=== PATIENT | female | born 1990 | race Hispanic/Latino ===

== ENCOUNTER 2019-02-22 19:34 | Emergency (ER) | payer OTHER ==
[~2019-02-22] VITALS: Ht 154.9 cm; Wt 104.3 kg
--- OUTSIDE RECORDS SUMMARY | 2019-02-22 19:37 | XMS REPORT | Clinical Summary ---
Author Author [facility] Address Unknown Phone Unavailable Care Team Providers Care Project Management Intern Name Role Phone Tona Cummins PCP Unavailable Allergies No Known Allergies Medications End Date Status Medication Sig Dispensed Refills Start Date Active omeprazole (PRILOSEC) 20 Take 20 mg by 0 MG capsule mouth daily. Active TRAMADOL HCL (TRAMADOL Take by 0 ORAL) mouth. Active IBUPROFEN ORAL Take by 0 mouth. Active Problems Problem Noted Date Hydronephrosis, unspecified hydronephrosis type 01/11/2017 Flank pain 01/11/2017 Acute cystitis without hematuria 08/28/2016 Left ureter dilated 08/28/2016 Right ureter dilated 08/28/2016 Left nephrolithiasis 08/28/2016 Bilateral hydronephrosis 08/28/2016 Gallstones 08/27/2016 Choledocholithiasis 08/27/2016 Family History Medical History Relation Name Comments Diabetes Maternal Grandmother Heart disease Maternal Grandmother Diabetes Maternal Uncle Asthma Mother Hyperlipidemia Mother Hypertension Paternal Grandmother Relation Name Status Comments Maternal Grandmother Maternal Uncle Mother Paternal Grandmother Social History Date Tobacco Use Types Packs/Day Years Used Quit: 06/08/2010 Former Smoker Cigarettes 0.5 5 Smokeless Tobacco: Chew Current User Alcohol Use Drinks/Week oz/Week Comments No Sex Assigned at Date Recorded Not on file Industry Job Start Date Occupation Not on file Not on file Not on file Travel End Travel History Travel Start No recent travel history available. Last Filed Vital Signs Not on file Plan of Treatment Not on file Results Not on fileafter 02/21/2018 Insurance Payer Benefit Subscriber ID Type Phone Address Plan / Group CIG[employer] - MGD CARE CIGNA xxxxxxxxxxx HMO/POS [facility] Advance Directives For more information, please contact: [facility] [address] [place] [address] Date Inactivated Comments Code Status Date Activated 01/13/2017 11:23 AM Full Code 01/11/2017 7:50 PM This code status was determined by: Patient 08/28/2016 8:34 PM Full Code 08/27/2016 5:51 AM This code status was determined by: Patient
--- OUTSIDE RECORDS SUMMARY | 2019-02-22 19:37 | XMS REPORT ---
Author Author [facility] Address Unknown Phone Unavailable Care Team Providers Care Global Marketing Specialist Name Role Phone HAWK GINA GONZALEZ Unavailable Unavailable RICHARD SERRANO Unavailable Unavailable Payers Payer Name Policy Type Policy Number Effective Date Expiration Date Problems This patient has no known problems. Allergies, Adverse Reactions, Alerts Allergy Name Allergy Type Status Severity Reaction(s) Onset Date Inactive Date Treating Clinician Comments No Known Allergies DA Active U 2018-01-10 00:00:00 Medications This patient has no known medications. Results Test Description Test Time Test Comments Text Results Atomic Results Result Comments BLOOD CULTURE 2017-01-18 00:00:00 CULTURE (BEAKER) (test bayq=2772) No growth in 5 days URINE [id number] 09:49:00* Test Item Value Reference Range Comments CULTURE (BEAKER) (test hayz=6235) >100,000 col/mL skin jamie CBC W/PLT COUNT & AUTO [id number] 08:20:00* Test Item Value Reference Range Comments WHITE BLOOD CELL COUNT (BEAKER) (test avxs=419) 4.7 K/ L 3.5-10.5 RED BLOOD CELL COUNT (BEAKER) (test wfww=162) 4.10 M/ L 3.93-5.22 HEMOGLOBIN (BEAKER) (test rrid=109) 10.6 GM/DL 11.2-15.7 HEMATOCRIT (BEAKER) (test xkec=839) 32.8 % 34.1-44.9 MEAN CORPUSCULAR VOLUME (BEAKER) (test ywdr=954) 80.0 fL 79.4-94.8 MEAN CORPUSCULAR HEMOGLOBIN (BEAKER) (test ozqo=176) 25.9 pg 25.6-32.2 MEAN CORPUSCULAR HEMOGLOBIN CONC (BEAKER) (test srox=673) 32.3 GM/DL 32.2-35.5 RED CELL DISTRIBUTION WIDTH (BEAKER) (test glup=856) 15.1 % 11.7-14.4 PLATELET COUNT (BEAKER) (test rrvv=262) 162 K/CU MM 150-450 MEAN PLATELET VOLUME (BEAKER) (test krzm=906) 10.5 fL 9.4-12.3 NUCLEATED RED BLOOD CELLS (BEAKER) (test hvmd=926) 0 /100 WBC 0-0 NEUTROPHILS RELATIVE PERCENT (BEAKER) (test bbmj=642) 44 % LYMPHOCYTES RELATIVE PERCENT (BEAKER) (test jyuo=244) 46 % MONOCYTES RELATIVE PERCENT (BEAKER) (test acwx=593) 8 % EOSINOPHILS RELATIVE PERCENT (BEAKER) (test lxff=636) 2 % BASOPHILS RELATIVE PERCENT (BEAKER) (test rwlu=299) 0 % NEUTROPHILS ABSOLUTE COUNT (BEAKER) (test nabt=842) 2.09 K/ L 1.56-6.13 LYMPHOCYTES ABSOLUTE COUNT (BEAKER) (test tvvi=730) 2.16 K/ L 1.18-3.74 MONOCYTES ABSOLUTE COUNT (BEAKER) (test srpf=803) 0.36 K/ L 0.24-0.36 EOSINOPHILS ABSOLUTE COUNT (BEAKER) (test timy=748) 0.09 K/ L 0.04-0.36 BASOPHILS ABSOLUTE COUNT (BEAKER) (test sdii=386) 0.01 K/ L 0.01-0.08 IMMATURE GRANULOCYTES-RELATIVE PERCENT (BEAKER) (test xkzb=9232) 0 % 0-1 (MANUAL DIFFERENTIAL)2017-01-13 08:20:00* Test Item Value Reference Range Comments TOTAL COUNTED (BEAKER) (test psxz=0407) WBC MORPHOLOGY (BEAKER) (test tvfu=629) Normal PLT MORPHOLOGY (BEAKER) (test gslm=372) Normal RBC MORPHOLOGY (BEAKER) (test yhrh=617) Normal BASIC METABOLIC [id number] 06:59:00* Test Item Value Reference Range Comments SODIUM (BEAKER) (test anmc=013) 138 meq/L 136-145 POTASSIUM (BEAKER) (test vfgr=662) 3.7 meq/L 3.5-5.1 CHLORIDE (BEAKER) (test qtcp=885) 111 meq/L 98-107 CO2 (BEAKER) (test pdgf=869) 20 meq/L 22-29 BLOOD UREA NITROGEN (BEAKER) (test hgxv=626) 5 mg/dL 7-21 CREATININE (BEAKER) (test apxt=274) 0.72 mg/dL 0.57-1.25 GLUCOSE RANDOM (BEAKER) (test vezj=699) 105 mg/dL 70-105 CALCIUM (BEAKER) (test ytag=799) 8.2 mg/dL 8.4-10.2 EGFR (BEAKER) (test hlqw=8453) 98 mL/min/1.73 sq m ESTIMATED GFR IS NOT ACCURATE CREATININE CLEARANCE IN PREDICTING GLOMERULAR FILTRATION RATE. ESTIMATED GFR IS NOT APPLICABLE FOR DIALYSIS PATIENTS. CBC W/PLT COUNT & AUTO [id number] 06:28:00* Test Item Value Reference Range Comments WHITE BLOOD CELL COUNT (BEAKER) (test ywon=901) 7.3 K/ L 3.5-10.5 RED BLOOD CELL COUNT (BEAKER) (test sfps=467) 4.49 M/ L 3.93-5.22 HEMOGLOBIN (BEAKER) (test cqqp=561) 11.5 GM/DL 11.2-15.7 HEMATOCRIT (BEAKER) (test kfvj=231) 37.0 % 34.1-44.9 MEAN CORPUSCULAR VOLUME (BEAKER) (test xvgy=933) 82.4 fL 79.4-94.8 MEAN CORPUSCULAR HEMOGLOBIN (BEAKER) (test stcy=122) 25.6 pg 25.6-32.2 MEAN CORPUSCULAR HEMOGLOBIN CONC (BEAKER) (test rshy=756) 31.1 GM/DL 32.2-35.5 RED CELL DISTRIBUTION WIDTH (BEAKER) (test bidr=199) 15.3 % 11.7-14.4 PLATELET COUNT (BEAKER) (test nlcu=464) 171 K/CU MM 150-450 MEAN PLATELET VOLUME (BEAKER) (test zpeu=768) 10.9 fL 9.4-12.3 NUCLEATED RED BLOOD CELLS (BEAKER) (test tkko=741) 0 /100 WBC 0-0 NEUTROPHILS RELATIVE PERCENT (BEAKER) (test eand=386) 73 % LYMPHOCYTES RELATIVE PERCENT (BEAKER) (test psor=934) 18 % MONOCYTES RELATIVE PERCENT (BEAKER) (test qpoj=759) 9 % EOSINOPHILS RELATIVE PERCENT (BEAKER) (test wejv=950) 1 % BASOPHILS RELATIVE PERCENT (BEAKER) (test roxl=199) 0 % NEUTROPHILS ABSOLUTE COUNT (BEAKER) (test ectz=517) 5.27 K/ L 1.56-6.13 LYMPHOCYTES ABSOLUTE COUNT (BEAKER) (test gfta=995) 1.28 K/ L 1.18-3.74 MONOCYTES ABSOLUTE COUNT (BEAKER) (test rnja=452) 0.63 K/ L 0.24-0.36 EOSINOPHILS ABSOLUTE COUNT (BEAKER) (test tfuv=253) 0.04 K/ L 0.04-0.36 BASOPHILS ABSOLUTE COUNT (BEAKER) (test dcdx=772) 0.01 K/ L 0.01-0.08 IMMATURE GRANULOCYTES-RELATIVE PERCENT (BEAKER) (test zznb=5686) 0 % 0-1 BASIC METABOLIC [id number] 06:25:00* Test Item Value Reference Range Comments SODIUM (BEAKER) (test pajt=072) 141 meq/L 136-145 POTASSIUM (BEAKER) (test ekzw=100) 3.8 meq/L 3.5-5.1 CHLORIDE (BEAKER) (test sdlr=790) 114 meq/L 98-107 CO2 (BEAKER) (test hcgj=499) 18 meq/L 22-29 BLOOD UREA NITROGEN (BEAKER) (test xrhm=671) 7 mg/dL 7-21 CREATININE (BEAKER) (test vcdr=595) 0.79 mg/dL 0.57-1.25 GLUCOSE RANDOM (BEAKER) (test mqju=038) 102 mg/dL 70-105 CALCIUM (BEAKER) (test czph=740) 8.3 mg/dL 8.4-10.2 EGFR (BEAKER) (test pwfj=7844) 88 mL/min/1.73 sq m ESTIMATED GFR IS NOT ACCURATE CREATININE CLEARANCE IN PREDICTING GLOMERULAR FILTRATION RATE. ESTIMATED GFR IS NOT APPLICABLE FOR DIALYSIS PATIENTS. URINALYSIS W/ [id number] 12:43:00* Test Item Value Reference Range Comments COLOR (BEAKER) (test phti=805) Yellow CLARITY (BEAKER) (test hpuj=175) Hazy SPECIFIC GRAVITY UA (BEAKER) (test carb=278) 1.016 1.001-1.035 PH UA (BEAKER) (test nkkz=579) 6.5 5.0-8.0 PROTEIN UA (BEAKER) (test praz=221) 200 mg/dL Negative GLUCOSE UA (BEAKER) (test zlir=186) Negative Negative KETONES UA (BEAKER) (test oxaq=314) Negative Negative BILIRUBIN UA (BEAKER) (test jcot=073) Negative Negative BLOOD UA (BEAKER) (test ndjb=764) Large Negative NITRITE UA (BEAKER) (test bfsf=740) Negative Negative LEUKOCYTE ESTERASE UA (BEAKER) (test lipk=011) Large Negative UROBILINOGEN UA (BEAKER) (test movg=536) 0.2 mg/dL 0.2-1.0 RBC UA (BEAKER) (test bsja=870) 1177 /HPF WBC UA (BEAKER) (test ybvr=197) 167 /HPF MUCUS (BEAKER) (test muol=7273) Many SQUAMOUS EPITHELIAL (BEAKER) (test xqmd=070) 1 /HPF SOURCE(BEAKER) (test rmaf=2685) Urine, Clean Catch BASIC METABOLIC [id number] 11:33:00* Test Item Value Reference Range Comments SODIUM (BEAKER) (test xunk=613) 136 meq/L 136-145 POTASSIUM (BEAKER) (test mfaa=756) 3.8 meq/L 3.5-5.1 CHLORIDE (BEAKER) (test jvds=257) 109 meq/L 98-107 CO2 (BEAKER) (test dfht=778) 17 meq/L 22-29 BLOOD UREA NITROGEN (BEAKER) (test unpz=225) 9 mg/dL 7-21 CREATININE (BEAKER) (test njxd=584) 0.94 mg/dL 0.57-1.25 GLUCOSE RANDOM (BEAKER) (test eafx=638) 105 mg/dL 70-105 CALCIUM (BEAKER) (test xpef=042) 8.5 mg/dL 8.4-10.2 EGFR (BEAKER) (test mnyh=3395) 72 mL/min/1.73 sq m ESTIMATED GFR IS NOT ACCURATE CREATININE CLEARANCE IN PREDICTING GLOMERULAR FILTRATION RATE. ESTIMATED GFR IS NOT APPLICABLE FOR DIALYSIS PATIENTS. CBC W/PLT COUNT & AUTO [id number] 11:29:00* Test Item Value Reference Range Comments WHITE BLOOD CELL COUNT (BEAKER) (test wuxi=015) 8.5 K/ L 3.5-10.5 RED BLOOD CELL COUNT (BEAKER) (test dqhr=111) 4.98 M/ L 3.93-5.22 HEMOGLOBIN (BEAKER) (test nhfc=643) 12.9 GM/DL 11.2-15.7 HEMATOCRIT (BEAKER) (test dlqk=809) 39.6 % 34.1-44.9 MEAN CORPUSCULAR VOLUME (BEAKER) (test mcep=873) 79.5 fL 79.4-94.8 MEAN CORPUSCULAR HEMOGLOBIN (BEAKER) (test mtyl=121) 25.9 pg 25.6-32.2 MEAN CORPUSCULAR HEMOGLOBIN CONC (BEAKER) (test fbjy=290) 32.6 GM/DL 32.2-35.5 RED CELL DISTRIBUTION WIDTH (BEAKER) (test oljs=132) 15.1 % 11.7-14.4 PLATELET COUNT (BEAKER) (test qpcc=694) 190 K/CU MM 150-450 MEAN PLATELET VOLUME (BEAKER) (test tpbw=559) 10.6 fL 9.4-12.3 NUCLEATED RED BLOOD CELLS (BEAKER) (test vyxe=104) 0 /100 WBC 0-0 NEUTROPHILS RELATIVE PERCENT (BEAKER) (test slfj=642) 81 % LYMPHOCYTES RELATIVE PERCENT (BEAKER) (test rotg=796) 13 % MONOCYTES RELATIVE PERCENT (BEAKER) (test gzmh=746) 5 % EOSINOPHILS RELATIVE PERCENT (BEAKER) (test wmak=392) 0 % BASOPHILS RELATIVE PERCENT (BEAKER) (test xwml=646) 0 % NEUTROPHILS ABSOLUTE COUNT (BEAKER) (test hxuk=486) 6.86 K/ L 1.56-6.13 LYMPHOCYTES ABSOLUTE COUNT (BEAKER) (test xlga=587) 1.08 K/ L 1.18-3.74 MONOCYTES ABSOLUTE COUNT (BEAKER) (test knou=560) 0.46 K/ L 0.24-0.36 EOSINOPHILS ABSOLUTE COUNT (BEAKER) (test giwh=205) 0.03 K/ L 0.04-0.36 BASOPHILS ABSOLUTE COUNT (BEAKER) (test pbif=855) 0.02 K/ L 0.01-0.08 IMMATURE GRANULOCYTES-RELATIVE PERCENT (BEAKER) (test phyk=1545) 0 % 0-1 BLOOD [id number] 11:00:00* Test Item Value Reference Range Comments CULTURE (BEAKER) (test xdyk=2714) No growth in 5 days BLOOD [id number] 11:00:00* Test Item Value Reference Range Comments CULTURE (BEAKER) (test rbez=0407) No growth in 5 days TISSUE [id number] 11:25:00* Test Item Value Reference Range Comments LAB AP CPT CODE (BEAKER) (test hgpt=7896) [address] URINE [id number] 10:47:00* Test Item Value Reference Range Comments CULTURE (BEAKER) (test snij=4399) PROTEUS MIRABILIS 10-19,000 col/mL Proteus mirabilis Amikacin (test code=1) Ampicillin + Sulbactam (test code=6) Aztreonam (test code=32) Cefepime (test code=51) Cefoxitin (test code=68) Ceftazidime (test code=27) Ceftriaxone (test code=52) Ertapenem (test code=38) Gentamicin (test code=18) Levofloxacin (test code=22) Meropenem (test code=34) Nitrofurantoin (test code=23) Piperacillin + Tazobactam (test code=29) Tetracycline (test code=2) Tobramycin (test code=25) Trimethoprim + Sulfamethoxazole (test code=47) CBC W/PLT COUNT & AUTO [id number] 10:00:00* Test Item Value Reference Range Comments WHITE BLOOD CELL COUNT (BEAKER) (test jxbo=961) 4.2 K/ L 4.0-10.0 RED BLOOD CELL COUNT (BEAKER) (test pglf=688) 4.35 M/ L 4.00-5.00 HEMOGLOBIN (BEAKER) (test tops=098) 10.8 GM/DL 12.0-15.0 HEMATOCRIT (BEAKER) (test rump=197) 34.5 % 36.0-45.0 MEAN CORPUSCULAR VOLUME (BEAKER) (test mgcb=163) 79.4 fL 82.0-99.0 MEAN CORPUSCULAR HEMOGLOBIN (BEAKER) (test ybvy=777) 25.0 pg 27.0-33.0 MEAN CORPUSCULAR HEMOGLOBIN CONC (BEAKER) (test sucx=852) 31.4 GM/DL 32.0-36.0 RED CELL DISTRIBUTION WIDTH (BEAKER) (test qwbe=155) 16.1 % 10.3-14.2 PLATELET COUNT (BEAKER) (test cejy=075) 219 K/CU MM 150-430 MEAN PLATELET VOLUME (BEAKER) (test ajbc=979) 8.8 fL 6.5-10.5 NUCLEATED RED BLOOD CELLS (BEAKER) (test etsm=042) 0 /100 WBC 0-0 NEUTROPHILS RELATIVE PERCENT (BEAKER) (test cqqh=922) 29 % LYMPHOCYTES RELATIVE PERCENT (BEAKER) (test ckgb=053) 57 % MONOCYTES RELATIVE PERCENT (BEAKER) (test kiuy=768) 7 % EOSINOPHILS RELATIVE PERCENT (BEAKER) (test chge=687) 7 % BASOPHILS RELATIVE PERCENT (BEAKER) (test ephz=048) 0 % NEUTROPHILS ABSOLUTE COUNT (BEAKER) (test ubww=407) 1.22 K/ L 1.80-8.00 LYMPHOCYTES ABSOLUTE COUNT (BEAKER) (test oddt=258) 2.37 K/ L 1.48-4.50 MONOCYTES ABSOLUTE COUNT (BEAKER) (test plzi=779) 0.30 K/ L 0.00-1.30 EOSINOPHILS ABSOLUTE COUNT (BEAKER) (test fjgb=493) 0.27 K/ L 0.00-0.50 BASOPHILS ABSOLUTE COUNT (BEAKER) (test axts=536) 0.01 K/ L 0.00-0.20 0.00(MANUAL DIFFERENTIAL)2016-08-28 10:00:00* Test Item Value Reference Range Comments TOTAL COUNTED (BEAKER) (test phhq=7260) WBC MORPHOLOGY (BEAKER) (test fqst=087) Normal PLT MORPHOLOGY (BEAKER) (test uoks=423) Normal RBC MORPHOLOGY (BEAKER) (test khmk=994) Normal COMPREHENSIVE METABOLIC [id number] 06:17:00* Test Item Value Reference Range Comments TOTAL PROTEIN (BEAKER) (test kilu=426) 6.8 gm/dL 6.0-8.3 ALBUMIN (BEAKER) (test kfyq=4721) 3.6 g/dL 3.5-5.0 ALKALINE PHOSPHATASE (BEAKER) (test guvq=676) 227 U/L 40-150 BILIRUBIN TOTAL (BEAKER) (test bqyg=694) 0.6 mg/dL 0.2-1.2 SODIUM (BEAKER) (test cgkz=464) 141 meq/L 136-145 POTASSIUM (BEAKER) (test pwnf=891) 4.0 meq/L 3.5-5.1 CHLORIDE (BEAKER) (test aotu=850) 112 meq/L 98-107 CO2 (BEAKER) (test qphl=763) 20 meq/L 22-29 BLOOD UREA NITROGEN (BEAKER) (test yvjz=101) 6 mg/dL 7-21 CREATININE (BEAKER) (test hgvp=417) 0.79 mg/dL 0.57-1.25 GLUCOSE RANDOM (BEAKER) (test yhzw=132) 78 mg/dL 70-105 CALCIUM (BEAKER) (test qaru=899) 8.6 mg/dL 8.4-10.2 AST (SGOT) (BEAKER) (test oupu=121) 52 U/L 5-34 ALT (SGPT) (BEAKER) (test diih=839) 152 U/L 6-55 EGFR (BEAKER) (test jqoc=6070) 89 mL/min/1.73 sq m ESTIMATED GFR IS NOT ACCURATE CREATININE CLEARANCE IN PREDICTING GLOMERULAR FILTRATION RATE. ESTIMATED GFR IS NOT APPLICABLE FOR DIALYSIS PATIENTS. [id number] 06:03:00* Test Item Value Reference Range Comments PROTIME (BEAKER) (test uzht=378) 13.1 seconds 11.7-14.7 INR (BEAKER) (test vadc=768) 1.0 <=5.9 PARTIAL THROMBOPLASTIN TIME (BEAKER) (test hzoh=403) 34.3 seconds 22.5-36.0 RECOMMENDED COUMADIN/WARFARIN INR THERAPY RANGESSTANDARD DOSE: 2.0 - 3.0 Inclu abel: PROPHYLAXIS for venous thrombosis, systemic embolization; TREATMENT for lakeisha ous thrombosis and/or pulmonary embolus.HIGH RISK: Target INR is 2.5-3.5 for pat ients with mechanical heart valves.CBC W/PLT COUNT & AUTO [id number] 08:12:00* Test Item Value Reference Range Comments WHITE BLOOD CELL COUNT (BEAKER) (test fmcz=976) 5.3 K/ L 4.0-10.0 RED BLOOD CELL COUNT (BEAKER) (test gemg=866) 4.47 M/ L 4.00-5.00 HEMOGLOBIN (BEAKER) (test iknl=050) 11.3 GM/DL 12.0-15.0 HEMATOCRIT (BEAKER) (test llpc=013) 34.6 % 36.0-45.0 MEAN CORPUSCULAR VOLUME (BEAKER) (test slvx=550) 77.5 fL 82.0-99.0 MEAN CORPUSCULAR HEMOGLOBIN (BEAKER) (test tnyu=857) 25.3 pg 27.0-33.0 MEAN CORPUSCULAR HEMOGLOBIN CONC (BEAKER) (test ggol=756) 32.6 GM/DL 32.0-36.0 RED CELL DISTRIBUTION WIDTH (BEAKER) (test fkuk=212) 15.9 % 10.3-14.2 PLATELET COUNT (BEAKER) (test vrzz=702) 231 K/CU MM 150-430 MEAN PLATELET VOLUME (BEAKER) (test pwfy=665) 8.6 fL 6.5-10.5 NUCLEATED RED BLOOD CELLS (BEAKER) (test dhio=223) 0 /100 WBC 0-0 NEUTROPHILS RELATIVE PERCENT (BEAKER) (test vhpb=976) 38 % LYMPHOCYTES RELATIVE PERCENT (BEAKER) (test nnmm=176) 47 % MONOCYTES RELATIVE PERCENT (BEAKER) (test qgmn=799) 6 % EOSINOPHILS RELATIVE PERCENT (BEAKER) (test eelk=598) 9 % BASOPHILS RELATIVE PERCENT (BEAKER) (test rquj=494) 0 % NEUTROPHILS ABSOLUTE COUNT (BEAKER) (test epwa=542) 2.01 K/ L 1.80-8.00 LYMPHOCYTES ABSOLUTE COUNT (BEAKER) (test xkdy=265) 2.49 K/ L 1.48-4.50 MONOCYTES ABSOLUTE COUNT (BEAKER) (test bowy=522) 0.31 K/ L 0.00-1.30 EOSINOPHILS ABSOLUTE COUNT (BEAKER) (test ouch=080) 0.48 K/ L 0.00-0.50 BASOPHILS ABSOLUTE COUNT (BEAKER) (test bkxk=888) 0.01 K/ L 0.00-0.20 0.00(MANUAL DIFFERENTIAL)2016-08-27 08:12:00* Test Item Value Reference Range Comments TOTAL COUNTED (BEAKER) (test pqle=9356) WBC MORPHOLOGY (BEAKER) (test phpp=510) Normal PLT MORPHOLOGY (BEAKER) (test xabg=471) Normal RBC MORPHOLOGY (BEAKER) (test ygpm=935) Normal COMPREHENSIVE METABOLIC [id number] 06:25:00* Test Item Value Reference Range Comments TOTAL PROTEIN (BEAKER) (test fnpv=461) 7.1 gm/dL 6.0-8.3 ALBUMIN (BEAKER) (test ycyx=7977) 3.9 g/dL 3.5-5.0 ALKALINE PHOSPHATASE (BEAKER) (test jodq=528) 289 U/L 40-150 BILIRUBIN TOTAL (BEAKER) (test jdli=926) 0.6 mg/dL 0.2-1.2 SODIUM (BEAKER) (test qssn=612) 139 meq/L 136-145 POTASSIUM (BEAKER) (test yppk=987) 3.6 meq/L 3.5-5.1 CHLORIDE (BEAKER) (test qstn=447) 109 meq/L 98-107 CO2 (BEAKER) (test uvfi=883) 19 meq/L 22-29 BLOOD UREA NITROGEN (BEAKER) (test anvv=152) 11 mg/dL 7-21 CREATININE (BEAKER) (test bryb=487) 0.79 mg/dL 0.57-1.25 GLUCOSE RANDOM (BEAKER) (test yyjs=244) 86 mg/dL 70-105 CALCIUM (BEAKER) (test mgou=867) 8.7 mg/dL 8.4-10.2 AST (SGOT) (BEAKER) (test rxuy=712) 110 U/L 5-34 ALT (SGPT) (BEAKER) (test cwqp=989) 236 U/L 6-55 EGFR (BEAKER) (test qctr=3188) mL/min/1.73 sq m INSUFFICIENT CLINICAL DATA TO CALCULATE ESTIMATED GFR. [id number] 06:22:00* Test Item Value Reference Range Comments LIPASE (BEAKER) (test ouqr=060) 29 U/L 8-78 [id number] 06:22:00* Test Item Value Reference Range Comments AMYLASE (BEAKER) (test wrlr=685) 65 U/L 25-125 BASIC METABOLIC [id number] 21:15:00* Test Item Value Reference Range Comments SODIUM (BEAKER) (test wdzd=170) 138 meq/L 136-145 POTASSIUM (BEAKER) (test kwvh=791) 3.6 meq/L 3.5-5.1 CHLORIDE (BEAKER) (test xyie=298) 107 meq/L 98-107 CO2 (BEAKER) (test jpjc=993) 19 meq/L 22-29 BLOOD UREA NITROGEN (BEAKER) (test gdhl=455) 12 mg/dL 7-21 CREATININE (BEAKER) (test dnmw=013) 1.01 mg/dL 0.57-1.25 GLUCOSE RANDOM (BEAKER) (test fscn=388) 81 mg/dL 70-105 CALCIUM (BEAKER) (test rjom=969) 9.2 mg/dL 8.4-10.2 EGFR (BEAKER) (test oknd=4059) mL/min/1.73 sq m INSUFFICIENT CLINICAL DATA TO CALCULATE ESTIMATED GFR. [id number] 21:10:00* Test Item Value Reference Range Comments LIPASE (BEAKER) (test aysd=486) 39 U/L 8-78 [id number] 21:10:00* Test Item Value Reference Range Comments AMYLASE (BEAKER) (test dize=840) 68 U/L 25-125 HEPATIC FUNCTION [id number] 21:10:00* Test Item Value Reference Range Comments TOTAL PROTEIN (BEAKER) (test pztu=723) 7.8 gm/dL 6.0-8.3 ALBUMIN (BEAKER) (test vyuw=2893) 4.3 g/dL 3.5-5.0 BILIRUBIN TOTAL (BEAKER) (test hcri=164) 0.8 mg/dL 0.2-1.2 BILIRUBIN DIRECT (BEAKER) (test wnff=243) 0.4 mg/dL 0.1-0.5 ALKALINE PHOSPHATASE (BEAKER) (test phoj=763) 343 U/L 40-150 AST (SGOT) (BEAKER) (test kxrx=829) 170 U/L 5-34 ALT (SGPT) (BEAKER) (test xwiy=173) 297 U/L 6-55 URINALYSIS W/ [id number] 21:01:00* Test Item Value Reference Range Comments COLOR (BEAKER) (test epaq=168) Yellow CLARITY (BEAKER) (test adwd=403) Clear SPECIFIC GRAVITY UA (BEAKER) (test fyfa=493) 1.012 1.001-1.035 PH UA (BEAKER) (test xtcp=507) 6.5 5.0-8.0 PROTEIN UA (BEAKER) (test onlk=513) 10 mg/dL Negative GLUCOSE UA (BEAKER) (test wrlj=940) Negative Negative KETONES UA (BEAKER) (test dvfp=814) Negative Negative BILIRUBIN UA (BEAKER) (test jdxc=469) Negative Negative BLOOD UA (BEAKER) (test gklb=889) Negative Negative NITRITE UA (BEAKER) (test vgeb=414) Negative Negative LEUKOCYTE ESTERASE UA (BEAKER) (test gare=282) Large Negative UROBILINOGEN UA (BEAKER) (test qthe=278) 0.2 mg/dL 0.2-1.0 RBC UA (BEAKER) (test jpxn=714) 1 /HPF WBC UA (BEAKER) (test stan=984) 24 /HPF MUCUS (BEAKER) (test oflx=5333) Few SQUAMOUS EPITHELIAL (BEAKER) (test jmmc=486) 2 /HPF SOURCE(BEAKER) (test fuwr=5486) Urine, Clean Catch CBC W/PLT COUNT & AUTO [id number] 20:58:00* Test Item Value Reference Range Comments WHITE BLOOD CELL COUNT (BEAKER) (test mkrg=686) 7.1 K/ L 4.0-10.0 RED BLOOD CELL COUNT (BEAKER) (test pgfb=871) 4.71 M/ L 4.00-5.00 HEMOGLOBIN (BEAKER) (test wtlg=775) 11.9 GM/DL 12.0-15.0 HEMATOCRIT (BEAKER) (test yszg=512) 37.2 % 36.0-45.0 MEAN CORPUSCULAR VOLUME (BEAKER) (test eggk=292) 79.0 fL 82.0-99.0 MEAN CORPUSCULAR HEMOGLOBIN (BEAKER) (test sbjz=502) 25.3 pg 27.0-33.0 MEAN CORPUSCULAR HEMOGLOBIN CONC (BEAKER) (test ubvp=778) 32.0 GM/DL 32.0-36.0 RED CELL DISTRIBUTION WIDTH (BEAKER) (test hrbd=928) 17.2 % 10.3-14.2 PLATELET COUNT (BEAKER) (test agju=960) 247 K/CU MM 150-430 MEAN PLATELET VOLUME (BEAKER) (test xxuq=482) 8.8 fL 6.5-10.5 NUCLEATED RED BLOOD CELLS (BEAKER) (test aeom=301) 0 /100 WBC 0-0 NEUTROPHILS RELATIVE PERCENT (BEAKER) (test wzak=274) 55 % LYMPHOCYTES RELATIVE PERCENT (BEAKER) (test xxwl=332) 35 % MONOCYTES RELATIVE PERCENT (BEAKER) (test kkbt=026) 5 % EOSINOPHILS RELATIVE PERCENT (BEAKER) (test idiq=579) 5 % BASOPHILS RELATIVE PERCENT (BEAKER) (test zuag=830) 0 % NEUTROPHILS ABSOLUTE COUNT (BEAKER) (test uqmi=631) 3.89 K/ L 1.80-8.00 LYMPHOCYTES ABSOLUTE COUNT (BEAKER) (test wvoa=206) 2.46 K/ L 1.48-4.50 MONOCYTES ABSOLUTE COUNT (BEAKER) (test scfy=009) 0.33 K/ L 0.00-1.30 EOSINOPHILS ABSOLUTE COUNT (BEAKER) (test fqoz=850) 0.39 K/ L 0.00-0.50 BASOPHILS ABSOLUTE COUNT (BEAKER) (test odnk=536) 0.00 K/ L 0.00-0.20 0.00PREGNANCY SCREEN, [id number] 20:55:00* Test Item Value Reference Range Comments TEST URINE (BEAKER) (test ovca=849) Negative
[2019-02-23 00:37] VITALS: BP 117/80
== END 2019-02-23 00:20 | disposition home or self-care (01) ==
LOC: ER 19:34
DX: M79.662 Pain in left lower leg (principal); M79.661 Pain in right lower leg; R60.0 Localized edema; M79.89 Other specified soft tissue disorders
CPT/HCPCS: 93005; 93970; 99283